=== PATIENT | male | born 1955 | race Caucasian/White ===

== ENCOUNTER 2022-09-25 06:21 | Day surgery (SDC) | payer MEDICARE ==
[2022-09-18 09:41] LABS: BASOPHILS % (AUTO) 0.5 % (0.0-5.0); EOSINOPHILS % (AUTO) 0.8 % (0.0-8.0); HEMATOCRIT 42.7 % (42-54); MEAN CORPUSCULAR HEMOGLOBIN 30.9 pg (27.0-33.0); MEAN CORPUSCULAR HGB CONC 33.7 g/dL (32.0-36.0); MEAN CORPUSCULAR VOLUME 91.6 fL (79-99); MONOCYTES % (AUTO) 5.1 % (3.0-13.0); NEUTROPHILS % (AUTO) 43.4 % (40.0-77.0); PLATELET COUNT (AUTO) 245 K/uL (130-400); RED BLOOD CELL COUNT(AUTO) 4.66 MIL/uL (4.50-6.20); RED CELL DISTRIBUTION WIDTH 11.9 % (11.0-15.5); WHITE BLOOD COUNT (AUTO) 5.9 K/uL (4.8-10.8)
[2022-09-18 09:52] LABS: POTASSIUM 4.2 mmol/L (3.5-5.1)
[2022-09-18 09:54] LABS: INR 0.94 (0.85-1.15); PROTHROMBIN TIME 10.3 SEC (9.6-11.6)
[2022-09-18 09:56] LABS: PARTIAL THROMBOPLASTIN TIME 29.9 SEC (26.3-35.5)
[2022-09-19 10:38] VITALS: BP 112/69
[~2022-09-25] VITALS: Ht 172.7 cm; Wt 65.5 kg
[2022-09-25] VITALS (25 sets, daily range): BP systolic 106–132; BP diastolic 52–83
[~2022-09-25 06:21] MED LIST: BACITRACIN 28.4 GM OINT TP ONE; LIDOCAINE 1%-EPI 1:100,000 20 ML VIAL IJ ONE; OXYMETAZOLINE HCL SPRAY 15 ML BOTTLE NS ONE; OXYMETAZOLINE HCL SPRAY 15 ML BOTTLE ONE
[2022-09-25] MEDS ORDERED: CEFAZOLIN SODIUM 2 GM VIAL ONE (06:55)
[2022-09-25] MEDS ORDERED: LACTATED RINGERS 1000ML 1,000 ML IV ONE (06:55)
[2022-09-25] MEDS ORDERED: SUCCINYLCHOLINE CHLORIDE 20 MG/ML 10 ML VIAL ONE (07:07)
[2022-09-25] MEDS ORDERED: LIDOCAINE PF 100MG/5ML (2%) SYRINGE 5ML ONE (07:07)
[2022-09-25] MEDS ORDERED: MIDAZOLAM HCL 1 MG/ML 2ML VIAL ONE (07:08)
[2022-09-25] MEDS ORDERED: GLYCOPYRROLATE 1 MG/5 ML SYRINGE ONE ×2 (07:10→10:56)
[2022-09-25] MEDS ORDERED: PROPOFOL 10 MG/ML 20ML VIAL IV ONE (07:10)
[2022-09-25] MEDS ORDERED: ROCURONIUM 10MG/1ML SYR 10 MG/ML ML ONE ×2 (07:10→07:20)
[2022-09-25] MEDS ORDERED: FENTANYL CITRATE PF 50 MCG/1 ML 2ML VIAL ONE ×2 (07:11)
[2022-09-25] MEDS ORDERED: ONDANSETRON 4MG INJ ONE (07:14)
[2022-09-25] MEDS ORDERED: DEXAMETHASONE SOD PHOSPHATE 10MG/ML 1ML VIAL ONE (07:14)
[2022-09-25] MEDS ORDERED: KETOROLAC 30MG VIAL (30MG/ML) ONE (07:15)
[2022-09-25] MEDS ORDERED: LIDOCAINE 1%-EPI 1:100,000 20 ML VIAL IJ SCH (07:30)
[2022-09-25] MEDS ORDERED: EPHEDRINE SULFATE 50 MG/ML AMPULE ONE (08:19)
[2022-09-25] MEDS ORDERED: OXYMETAZOLINE HCL SPRAY 15 ML BOTTLE NS ONE (08:22)
[2022-09-25] MEDS ORDERED: BACITRACIN 28.4 GM OINT TP ONE (08:22)
[2022-09-25] MEDS ORDERED: LIDOCAINE 1%-EPI 1:100,000 20 ML VIAL IJ ONE (08:22)
[2022-09-25] MEDS ORDERED: NEOSTIGMINE 5MG/5ML SYR IV ONE (08:52)
[2022-09-25] MEDS ORDERED: HYDROMORPHONE 1 MG INJ ONE (10:26)
== END 2022-09-25 14:30 | disposition home or self-care (01) ==
LOC: DAH 06:21
PROVIDERS: ATTEND Otolaryngology Plastic Surgery within the Head & Neck
DX: J34.89 Other specified disorders of nose and nasal sinuses (principal); M95.0 Acquired deformity of nose; Z20.822 Contact with and (suspected) exposure to COVID-19; Z79.01 Long term (current) use of anticoagulants; Z79.899 Other long term (current) drug therapy; Z98.890 Other specified postprocedural states
CPT/HCPCS: 87426; 80048; 85025; 85730; 85610; 36415; 30465; A6260; A4663; A4649 ×3; J7120; J3010; J3490 ×5; J1170; J1100; J2710; J0330; J2001; J2250; J2704; J2405; J1885; J0690; A4930; A4215; A4223; A4222; A4221; A4600